=== PATIENT | male | born 1955 | race Caucasian/White ===

== ENCOUNTER 2017-08-17 06:27 | Emergency (ER) | payer OTHER ==
[2017-08-17] MEDS: LIDOCAINE 1% (MDV) 10 ML INJ INJ (06:47)
[2017-08-17] MEDS: DIPHTH/TET/ACEL PERTUSS (ADULT) 0.5 ML VIAL IM* (06:48)
== END 2017-08-17 08:05 | disposition home or self-care (01) ==
LOC: FTE 06:27
DX: S60.450A Superficial foreign body of right index finger, initial encounter (principal); I10 Essential (primary) hypertension; W45.8XXA Other foreign body or object entering through skin, initial encounter; Y92.9 Unspecified place or not applicable; Z23 Encounter for immunization; Z85.46 Personal history of malignant neoplasm of prostate
CPT/HCPCS: 10120; 73140; 90471; 90715; 99283-25